=== PATIENT | female | born 1970 | race Caucasian/White ===

== ENCOUNTER 2024-02-02 16:01 | Emergency (ER) | payer OTHER, SELFPAY ==
[2024-02-02 16:07] VITALS: BP 158/104
--- NOTE | 2024-02-02 18:50 | ED.SKININJ ---
HPI-Injury
General
Chief Complaint: Skin Problem
Source: patient
Exam Limitations: none
Time Seen by Provider: 02/02/24 17:49
Nursing documentation reviewed up to this point in time: agreed with
History of Present Illness-Injury
Is this injury a work related problem?: No
Is pt an associate of [facility]/[place]?: No
Initial Injury comments:
Patient to ED wtih complaint of painful hemorrhoid. Symptoms started 2 days ago. Drove from [facility] to [facility] when symptoms started. Brought self to ED for eval.
Past History
Past History
ED Past Medical History: None
Review of Systems
Review of Systems
Allergies reviewed?: Yes
All Other Systems: ROS reviewed and negative except as documented in HPI and ROS
Constitutional: Reports no symptoms
EENT: Reports no symptoms
Respiratory: Reports no symptoms
Cardiac: Reports no symptoms
ABD/GI: Reports other (Painful hemorrhoid)
: Reports no symptoms
Musculoskeletal: Reports no symptoms
Skin: Reports no symptoms
Neurological: Reports no symptoms
Psychiatric: Reports no symptoms
Phy Exam
General Physical Exam
General Presentation: moderate distress
General age: appears stated age
General Skin: warm and dry
General Habitus: normal
General Mental: alert
Gastrointestinal Exam
Gastrointestinal Exam: non tender and soft
Rectal Exam: hemorrhoids (thrombosed external hemorrhoid)
Musculoskeletal Exam
Musculoskeletal Exam: full ROM and neuro vasc intact
Skin Exam
Skin Exam: normal color, warm/dry and no rash
Psychiatric Exam
Psychiatric Exam: normal mood/affect
Course
Vital Signs
Initial and Last Documented VS:
Initial Vital Signs
Temp Pulse Resp BP Pulse Ox
98.2 F 85 20 158/104 97
02/02/24 16:07 02/02/24 16:07 02/02/24 16:07 02/02/24 16:07 02/02/24 16:07
Last Documented Vital Signs
Temp Pulse Resp BP Pulse Ox
98.2 F 85 20 158/104 97
02/02/24 16:07 02/02/24 16:07 02/02/24 16:07 02/02/24 16:07 02/02/24 16:07
*Critical Care Note
Total Time (30-74mins, 75-104mins- exclusive of procedures): Not Applicable
Update Note
Update Note:
Patient to ED for treatment of thrombosed hemorrhoid. Symptoms started 2 days ago. USint prep.H without improvement. Hemorrhoid injected with LIdocaine 1% and clot evacuted using #11 blade. She tolerated procedure well. Will discharge home,
recommend Sitz bath, Tucks medicated pads. Given instructions on s/s to return to ED and she is agreeable to plan.
ED Attending Note
-
Portions of this chart may have been created with voice recognition software.� Occasional wrong word or��sound alike� substitutions may have occurred due to the inherent limitations of voice recognition software.
Discharge Plan
Departure
Patient Disposition: Home (Routine Discharge)
Date of Disposition: 02/02/24
Time of Disposition: 18:46
Patient with high blood pressure during this ER visit?: No
Condition: Good
Covid-19: Not Applicable
Discharge Problem:
Hemorrhoids, external, thrombosed
Instructions: Hemorrhoids ED, How to take a sitz bath
Prescriptions:
New
hydrocodone-acetaminophen 5-325 mg tablet
1 tab PO Q4H PRN (Reason: Pain) Qty: 10 0RF
Referrals:
NONE,* [Family Provider] -
Activity Restrictions/Additional Instructions:
FOllow up with your famiy doctor.
Use TUCKS medicated pads to wipe after bowel movements.
Interventions
Interventions:
*General Assessment Last Done: 02/02/24 16:07
Discharge Date and Time
Print Language: SERBIAN
[2024-02-02 18:54] VITALS: BMI 35.5
== END 2024-02-02 18:59 | disposition home or self-care (01) ==
LOC: EMR 16:01
PROVIDERS: EMERGENCY PHYSICIAN Emergency Medicine
DX: K64.5 Perianal venous thrombosis (principal)
CPT/HCPCS: 99283